=== PATIENT | female | born 1990 | race Caucasian/White ===

== ENCOUNTER 2021-01-05 17:20 | Inpatient (IN) | payer OTHER ==
[2021-01-05] VITALS (11 sets, daily range): BP systolic 134–165; BP diastolic 69–98; PULSE 65–85; TEMP 99
[~2021-01-05] VITALS: Ht 160 cm; Wt 78.2 kg
--- NOTE | 2021-01-05 17:20 | NUR ---
1720- 37.5, G2L0 arrives on unit with c/o SROM at 1630. Ambulatory to tirage room 1 wish spouse. Patient reports normal movement, and mild "period like" cramps. Denies any VB. Changes into clean gown. 1730- EFM applied x2 and tracing well. SVE by this RN /-. Amnitest positive, clear fluids noted with exam. VS obtained. Plan of care reviewed with patient. 1743- Dr. Servin updated on patient. Orders received. See physician notification. Patient to LDR4 via WC. Oriented to room and plan of care. IV to left hand, routine labs obtanied via IV site. Assessment completed. Consent forms explained and signed. Questions invited and answered. Patient resting with call light within reach. 1811- Patient off monitors and to bathroom.
[2021-01-05] MEDS ORDERED: PRIL40 PO (17:58)
[2021-01-05] MEDS ORDERED: PRENATAL MVI (17:58)
--- NOTE | 2021-01-05 18:30 | NUR ---
Dr. Servin at nurses desk. Updated on current blood pressures. Provider to bedside. Bedside US; vertex. Dr. Servin reviews plan of care with patient and spouse who verbalizes understanding.
[2021-01-05 18:31] LABS: BASO % 0.2 % (0.0-2.0); EOS # 0.1 (0.0-0.7); EOS % 0.9 % (0-4.0); GRAN # 7.9 (1.4-6.5); GRAN % 63.3 % (42.2-75.2); LYMPH # 3.3 (1.2-3.4); LYMPH % 26.9 % (20.0-51.0); MEAN CELL VOLUME 92 fl (80.0-100.0); MEAN CORPUSCULAR HEMOGLOBIN 32 pg (27.0-31.0); MEAN CORPUSCULAR HGB CONC 35 g/dl (33.0-37.0); MEAN PLATELET VOLUME 10.7 fl (7.4-10.4); MONO % 8.1 % (1.7-9.3); PLATELET COUNT 303 K/mm3 (130-400); RED BLOOD COUNT 3.75 M/mm3 (4.10-5.30); REDCELL DISTRIBUTION WIDTH-CV 12.9 % (11.5-14.5)
[2021-01-05 18:32] LABS: HEMATOCRIT 34.3 % (37.0-47.0)
--- NOTE | 2021-01-05 19:40 | NUR ---
Off monitor, up to move around room.
--- NOTE | 2021-01-05 22:32 | NUR ---
"definitely ready for my epidural" On Monitor, LR started at bolus rate. 2241 L.Edgar TABLE SETTER into room for epidural placement, see anesthesia record. Pt to edge of bed. EFM traces maternal heart rate rate, unles held in place.
[2021-01-06] VITALS (23 sets, daily range): BP systolic 122–160; BP diastolic 58–95; PULSE 50–122; TEMP 97.8–98.9
--- NOTE | 2021-01-06 01:00 | NUR ---
SVE unchanged, min catheter placed. Pericare. Discussed with pt and spouse starting pitocin augmentation. Questions invited and answered.
--- NOTE | 2021-01-06 02:30 | NUR ---
FHT's to 170's-180's w acceleration. to SF, temp 98.9.
--- NOTE | 2021-01-06 06:18 | NUR ---
of female infant, after reduction of nuchal cord X1, by Dr Servin.
[2021-01-07 01:30] VITALS: BP 136/72; PULSE 75; TEMP 98.3
[2021-01-07 08:54] VITALS: BP 130/68; PULSE 79; TEMP 98
[2021-01-07] MEDS ORDERED: IBU600 MG PO (12:06)
[2021-01-07 16:28] VITALS: BP 131/75; PULSE 72; TEMP 98
[2021-01-07 19:45] VITALS: BP 139/85; PULSE 76; TEMP 98
[2021-01-08 08:00] VITALS: BP 125/83; PULSE 88; TEMP 98
--- NOTE | 2021-01-08 09:07 | NUR ---
Initial visit; Patient thanked [employer]le for offering congratulations and God's blessings for the of her daughter. Pourer [employer] Ladle thanked patient for choosing [facility].
--- NOTE | 2021-01-08 12:00 | NUR ---
Rests in bed, alert. Discharge teaching done, verbalizes understanding.
== END 2021-01-08 12:15 | disposition home or self-care (01) | DRG 768 ==
LOC: LDRO 17:20 → OB 18:00 → LDR 18:00 → OB 01-06 10:00
PROVIDERS: Obstetrics & Gynecology; ADMIT Student in an Organized Health Care Education/Training Program
PROC: 10E0XZZ Delivery of Products of Conception, External Approach (ICD-10-PCS; principal; 2021-01-06)
PROC: 0UQJXZZ Repair Clitoris, External Approach (ICD-10-PCS; 2021-01-06)
PROC: 0UQMXZZ Repair Vulva, External Approach (ICD-10-PCS; 2021-01-06)
DX: O99.62 Diseases of the digestive system complicating childbirth (principal); Z37.0 Single live birth; O71.82 Other specified trauma to perineum and vulva; Z3A.37 37 weeks gestation of pregnancy
CPT/HCPCS: J2590; J2795; J7120

== ENCOUNTER → 2021-01-15 | Outpatient (CLI) | payer OTHER ==
[~2021-01-15] MED LIST: IBU600 MG PO; PRENATAL MVI; PRIL40 PO
--- NOTE | 2021-01-15 14:27 | NUR ---
Pt, Olga Box, presents for outpatient consult with 9 day old baby girl, Shmuel Box, for a breastfeedng evaluation. She is accompanied by her spouse. Shmuel was born on 01[birth year]06[birth year] and weighed 6#12.3oz (3070 gms). The family reports she weighed 6#4.8oz at Dr. Jade's office on 01/10/21. Today Shmuel weighs 6#8.1oz (2952 gms), for a gain of 3.3oz over the last 5 days. Family reports Shmuel has QS voids and stools, and eats 8+ times per 24 hours. She does have to use a nipple shield as the nipple does not annika well at this time. Pt also has noted oversupply of milk, causing more latch difficulties without the nipple shield. Shmuel latches well with shield, pt uses hold with baby sitting upright in front of breast to help manage milk flow. She also uses a Haaka on the opposite breast. Pt advised on stopping milk leaking by pressing into the nipple rather than use of the Haaka that actually makes more milk come from the breast. Use of the Haaka may be contributing to the oversupply of milk. Pt removes Haaka, is provided nursing pad and presses into the nipple to stop leaking. Shmuel nurses pretty well, lots of gulping and then slows her effort. Initial weight gain was 1.7oz (48 gms). She was woke more and returned to the same breast. Total intake after the second latch was 2.3oz (65 gms). Pt advised on milk reduction efforts, to single side feed until milk volume reduced, and about weaning from shield as nursing progresses. LC attempted to latch baby without shield, baby not able to hold onto nipple. POC: Single side , working on one breast longer. Reduce oversupply as advised; handouts provided. F/U: advises weight check before end of week. Family indicates they will schedule with Dr. Jade as the process to check in is easier than at [facility]. Questions invited and answered.
== END ==
LOC: LAC 08:41
DX: Z39.1 Encounter for care and examination of lactating mother (principal); Z71.89 Other specified counseling